=== PATIENT | female | born 1960 | race American Indian/Alaskan Native ===

== ENCOUNTER 2016-12-25 20:58 | Emergency (ER) | payer OTHER ==
[2016-12-25] MEDS ORDERED: DILAUDID IV ONE (23:22)
[2016-12-25] MEDS ORDERED: NACL 0.9% 500 ML 500 ML IV ONE (23:22)
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
[2016-12-25 23:50] LABS: Hematocrit 42.4 % (30.3-42.9); Hemoglobin 13.8 gm/dl (10.1-14.3); Mean Corpuscular HGB Conc 33 % (30-34); Mean Corpuscular Hemoglobin 30 pg (28-32); Mean Corpuscular Volume 92 fl (79-97); Platelet Count 258 K/mm3 (140-440); Red Blood Count 4.64 M/mm3 (3.65-5.03); Red Cell Distribution Width 14.5 % (13.2-15.2)
[2016-12-26 00:11] LABS: Alanine Aminotransferase 18 units/L (7-56); Albumin 4.5 g/dL (3.9-5); Albumin/Globulin Ratio 1.8 %; Alkaline Phosphatase 73 units/L (35-129); Anion Gap 21 mmol/L; BUN/Creatinine Ratio 16; Blood Urea Nitrogen 13 mg/dL (7-17); Calcium 9.3 mg/dL (8.4-10.2); Carbon Dioxide 24 mmol/L (22-30); Chloride 98.9 mmol/L (98-107); Glucose 93 mg/dL (65-100); Lipase 22 units/L (13-60); Potassium 3.6 mmol/L (3.6-5.0); Sodium 140 mmol/L (137-145)
[2016-12-26] MEDS ORDERED: NACL ONE (01:51)
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
[2016-12-26] MEDS ORDERED: APRESOLINE IV ONE (05:24)
[2016-12-26 05:42] VITALS: BP 162/64
--- NOTE | 2016-12-26 10:23 | XRay Report ---
AP CHEST: HISTORY: Chest pain, upper back pain AP view of the chest demonstrates a normal mediastinal and cardiac contour with clear lungs and normal bony and soft tissue structures. No significant change since 09/02/15. IMPRESSION: Unremarkable AP chest.
--- NOTE | 2016-12-26 11:02 | XRay Report ---
LUMBOSACRAL SPINE, 3 VIEWS: History: Back pain Findings: The vertebral bodies, disk spaces and posterior elements are intact. No compression deformity or malalignment. The SI joints are symmetric and unremarkable. Impression: 1. No evidence for acute injury to the lumbar spine.
--- NOTE | 2016-12-26 11:02 | XRay Report ---
CERVICAL SPINE, 3 views: History: Neck pain. Findings: The vertebral bodies, disk spaces, posterior elements and prevertebral soft tissues are unremarkable. The dens is intact. No acute fracture or malalignment is identified. Impression: 1. No evidence for acute injury to the cervical spine.
== END 2016-12-26 07:21 | disposition home or self-care (01) ==
LOC: ED 20:58
DX: R10.84 Generalized abdominal pain (principal); M79.652 Pain in left thigh; M54.9 Dorsalgia, unspecified; F17.210 Nicotine dependence, cigarettes, uncomplicated
CPT/HCPCS: 36415; 71010; 72040; 72100; 74177; 80053; 83690; 85027; 96374; 96375; 99285; J0360; J1170; J7040; Q9967